=== PATIENT | female | born 1980 ===

== ENCOUNTER → 2016-09-23 | Outpatient (CLI) | payer BC ==
[~2016-09-23] MED LIST: IBUP600T44 PO; LEVO-217 PO; OXYC-57 PO; PRENTAB26 PO; PSYL55.43
== END | disposition home or self-care (01) ==
LOC: C.PAPS 08:45
PROVIDERS: ATTEND Obstetrics & Gynecology
DX: Z01.419 Encounter for gynecological examination (general) (routine) without abnormal findings (principal)